=== PATIENT | male | born 1965 | race Caucasian/White ===

== ENCOUNTER 2022-07-27 06:50 | Day surgery (SDC) | payer MEDICARE, MEDICAID ==
[2022-07-26 10:51] LABS: BASOPHILS % (AUTO) 0.5 % (0-1); EOSINOPHILS # (AUTO) 0.1 X10'3 (0-0.9); EOSINOPHILS % (AUTO) 1.5 % (0-6); HEMATOCRIT 42.7 % (42.0-52.0); HEMOGLOBIN 14.5 g/dl (14.0-17.9); LYMPHOCYTES # (AUTO) 1.6 X10'3 (1.1-4.8); MEAN CORPUSCULAR HEMOGLOBIN 30.5 PG (27.0-31.0); MEAN CORPUSCULAR HGB CONC 34.1 g/dL (33.0-36.5); MEAN CORPUSCULAR VOLUME 89.6 FL (78-98); MEAN PLATELET VOLUME 8.1 FL (7.4-10.4); MONOCYTES # (AUTO) 0.7 X10'3 (0-0.9); MONOCYTES % (AUTO) 7.9 % (2-12); NEUTROPHILS # (AUTO) 6.8 X10'3 (1.8-7.7); NEUTROPHILS % (AUTO) 73.1 % (42-75); PLATELET COUNT 289 X10'3 (140-440); RED BLOOD COUNT 4.76 X10'6 (4.70-6.10); RED CELL DISTRIBUTION WIDTH 13.5 % (11.5-14.5); WHITE BLOOD COUNT 9.3 X10'3 (4.5-11.0)
[2022-07-26 11:04] LABS: APTT 26 SECONDS (22-32)
[2022-07-26 11:08] LABS: ANION GAP 10 (8-16); BLOOD UREA NITROGEN 14 MG/DL (7-18); BUN/CREATININE RATIO 13.2 (5.4-32.0); CHLORIDE 99 MMOL/L (99-107); CREATININE 1.06 MG/DL (0.60-1.10); GLUCOSE 149 MG/DL (70-104); POTASSIUM 3.9 MMOL/L (3.5-5.1); SODIUM 137 MMOL/L (135-145); TOTAL CARBON DIOXIDE 28.2 MMOL/L (24-32); eGFR 72 ML/MIN
[2022-07-26 11:13] LABS: ALBUMIN 4.2 G/DL (3.4-5.0)
[2022-07-27] VITALS (11 sets, daily range): BP systolic 131–164; BP diastolic 61–75
[~2022-07-27] VITALS: Ht 172.7 cm; Wt 108.7 kg
[~2022-07-27 06:50] MED LIST: ALBU18HF2 INH; ALLO100T PO; ANUHCCR RC; ASPI-1265 PO; COMIN IH; DIPH-423 PO; ESOM40CA49 PO; FENO145T26 PO; FURO-150 PO; HCTZ25T PO; LISI20TA28 PO; METF500T PO; METO-395 PO; POTA-192 PO; PRAS10TA6 PO; ROSU10TA2 PO
[2022-07-27] MEDS ORDERED: diphenhydrAMINE 25mg capsule PO PRN (07:10)
[2022-07-27] MEDS ORDERED: normal saline 1,000 ML IV SCH (07:10)
[2022-07-27] MEDS ORDERED: LIDOcaine/PRILOcaine 5gm cream TP ONE (07:10)
[2022-07-27] MEDS ORDERED: LORazepam 0.5 MG tablet PO PRN (07:15)
[2022-07-27] MEDS ORDERED: TADA5TAB13 PO (07:58)
[2022-07-27] MEDS ORDERED: FLUT12AE4 PO (07:58)
[2022-07-27] MEDS ORDERED: EMPA1TAB PO (07:58)
[2022-07-27] MEDS ORDERED: ISOS30TA84 PO (07:58)
[2022-07-27] MEDS ORDERED: verapamil 2.5 mg/ml inj IV ONE (09:50)
[2022-07-27] MEDS ORDERED: LIDOcaine 1%/PF 5ML 10 MG/ML VIAL ONE (09:50)
[2022-07-27] MEDS ORDERED: fentaNYL/PF 50MCG/1 ML 2ML syringe ONE (09:51)
[2022-07-27] MEDS ORDERED: heparin 1,000unit/ml 10ml vial 10 ML ONE (09:51)
[2022-07-27] MEDS ORDERED: iohexol 350MG/ML 100ml bottle IV ONE (09:51)
[2022-07-27] MEDS ORDERED: midazolam 1 mg/ML 2ml injection ONE (09:51)
[2022-07-27] MEDS ORDERED: nitroGLYCERIN-Tridil 50MG/D5W 250 ML IV ONE (09:51)
[2022-07-27] MEDS ORDERED: normal saline 1000ml 1,000 ML IV SCH (11:35)
== END 2022-07-27 15:45 | disposition home or self-care (01) ==
LOC: SSTAY O 06:50
PROVIDERS: ATTEND Internal Medicine Cardiovascular Disease
DX: R94.39 Abnormal result of other cardiovascular function study (principal); I25.10 Atherosclerotic heart disease of native coronary artery without angina pectoris; I10 Essential (primary) hypertension; E78.5 Hyperlipidemia, unspecified; G47.30 Sleep apnea, unspecified; J44.9 Chronic obstructive pulmonary disease, unspecified; K21.9 Gastro-esophageal reflux disease without esophagitis; G47.33 Obstructive sleep apnea (adult) (pediatric); E11.9 Type 2 diabetes mellitus without complications; I25.2 Old myocardial infarction; Z79.899 Other long term (current) drug therapy; Z98.890 Other specified postprocedural states; Z79.01 Long term (current) use of anticoagulants; I70.219 Atherosclerosis of native arteries of extremities with intermittent claudication, unspecified extremity
CPT/HCPCS: 36415; 76937; 80048; 82948; 85025; 85610; 85730; 93005; 93458; 99152; 99153; C1769; C1894; J1644; J2250; J3010; J3490; J7030; Q0163; Q9967; A4620; A5120; A6258; A6402